=== PATIENT | male | born 1945 | race Caucasian/White ===

== ENCOUNTER 2017-04-03 07:47 | Inpatient (IN) | payer OTHER ==
[2017-04-02 13:38] VITALS: BMI 36.6
[2017-04-03] MEDS ORDERED: LIDOCAINE HCL 2% (20ML MULTI-DOSE VIAL) NR ONE (08:14)
[2017-04-03] MEDS ORDERED: SEVOFLURANE 250 ML BTL ONE (08:14)
[2017-04-03] MEDS ORDERED: DESFLURANE GAS 240 ML BOTTLE IH ONE (08:15)
[2017-04-03] MEDS ORDERED: CEFAZOLIN 2 GM in DEXTROSE 5%-WATER - 100 ML IVPB ONE (08:26)
[2017-04-03] MEDS ORDERED: FLU VACCINE QUAD 60 MCG/0.5 ML (MDV 17-18) IM ONE (08:26)
[2017-04-03] MEDS ORDERED: ceFAZolin SODIUM 1 GM VIAL ONE (08:36)
[2017-04-03] MEDS ORDERED: MIDAZOLAM HCL 2 MG/2 ML SINGLE DOSE VIAL ONE ×2 (09:15→13:05)
[2017-04-03] MEDS ORDERED: fentaNYL CITRATE 250 MCG/5 ML VIAL ONE ×2 (09:15→10:23)
[2017-04-03] MEDS ORDERED: PROPOFOL 20 ML ONE ×2 (09:15)
[2017-04-03] MEDS ORDERED: ROCURONIUM BROMIDE 50 MG/5 ML VIAL ONE ×4 (09:15→10:11)
--- NOTE | 2017-04-03 09:21 | HP ---
Admitting History and Physical - Admission Chief Complaint: pt with 5.6cm AAA. Here for EVAR today Limitations to Obtaining History: No Limitations - Past Medical History [employer]: Yes: CVA Cardiovascular: Yes: HTN, Hyperlipdemia Gastrointestinal: Yes: Constipation Renal/: Yes: BPH - Smoking History Smoking history: Former smoker Have you smoked in the past 12 months: No Aproximately how many cigarettes per day: 0 If you are a former smoker, when did you quit?: 25YRS AGO - Alcohol/Substance Use Hx Alcohol Use: Yes (OCCAS) History of Substance Use: reports: None - Social History ADL: Independent History of Recent Travel: No Home Medications - Allergies Allergies/Adverse Reactions: Allergies Allergy/AdvReac Type Severity Reaction Status Date / Time No Known Drug Allergies Allergy Mild Verified 04/03/17 08:30 - Home Medications Home Medications: Ambulatory Orders Amlodipine Besylate [Norvasc -] 10 mg PO DAILY #30 tablet 01/13/14 Aspirin [ASA -] 81 mg PO DAILY #30 tab.chew 01/13/14 Atorvastatin Ca [Lipitor] 20 mg PO HS #30 tablet 01/13/14 Cholecalciferol (Vitamin D3) [Vitamin D3] 5,000 unit PO DAILY 04/02/17 Hydralazine HCl [Apresoline -] 25 mg PO TID 04/02/17 Ibuprofen/Diphenhydramine HCl [Advil Pm Liqui-Gels] 2 each PO BID 04/02/17 Lisinopril/Hydrochlorothiazide [Lisinopril-Hctz 20-12.5 mg Tab] 1 each PO DAILY 04/02/17 Metoprolol Succinate [Toprol Xl -] 25 mg PO BID 04/02/17 Family Disease History - Family Disease History Family Disease History: Heart Disease: Father, CA: Mother Review of Systems - Review of Systems Constitutional: reports: No Symptoms Eyes: reports: No Symptoms HENT: reports: No Symptoms Neck: reports: No Symptoms Cardiovascular: reports: No Symptoms Respiratory: reports: No Symptoms Gastrointestinal: reports: No Symptoms Genitourinary: reports: No Symptoms Breasts: reports: No Symptoms Reported Musculoskeletal: reports: No Symptoms Integumentary: reports: No Symptoms Neurological: reports: No Symptoms Endocrine: reports: No Symptoms Hematology/Lymphatic: reports: No Symptoms Psychiatric: reports: No Symptoms Physical Examination Vital Signs: Vital Signs Temperature 97.4 F L 04/03/17 08:21 Pulse Rate 80 04/03/17 08:21 Respiratory Rate 20 04/03/17 08:21 Blood Pressure 154/92 04/03/17 08:21 O2 Sat by Pulse Oximetry (%) 97 04/03/17 08:20 Constitutional: Yes: Well Nourished Eyes: Yes: WNL HENT: Yes: WNL Neck: Yes: WNL Cardiovascular: Yes: WNL Respiratory: Yes: WNL Gastrointestinal: Yes: WNL ...Rectal Exam: Yes: WNL Renal/: Yes: WNL Breast(s): Yes: WNL Edema: No Peripheral Pulses WNL: Yes Integumentary: Yes: WNL Wound/Incision: Yes: Clean/Dry Neurological: Yes: WNL ...Motor Strength: WNL Psychiatric: Yes: WNL Assessment/Plan 5.6 cm AAA 1. For evar today.
[2017-04-03] MEDS ORDERED: ceFAZolin SODIUM 1 GM VIAL IVPB ONE (09:48)
[2017-04-03] MEDS ORDERED: DEXAMETHASONE SOD PHOSPHATE 4 MG/1 ML VIAL ONE (10:23)
[2017-04-03] MEDS ORDERED: HEPARIN NA (PORCINE) 5,000 UNITS/ML 1ML VIAL ONE (10:26)
[2017-04-03] MEDS ORDERED: GLYCOPYRROLATE 0.2 MG/1 ML VIAL ONE (12:13)
[2017-04-03] MEDS ORDERED: NEOSTIGMINE METHYLSULFATE 0.5 MG/ML - 10 ML MDV ONE (12:13)
[2017-04-03] MEDS ORDERED: POVIDONE-IODINE OINTMENT 10% - 28.4 GM TUBE ONE (12:15)
--- NOTE | 2017-04-03 12:55 | OP ---
Operative Note - Note: Operative Date: 04/03/17 Pre-Operative Diagnosis: AAA Operation: Endovascular repair of AAA Findings: 5.6cm AAA Post-Operative Diagnosis: Same as Pre-op Surgeon: Reilly Hanna Anesthesia: General Estimated Blood Loss (mls): 400 Operative Report Dictated: Yes
[2017-04-03] MEDS: MIDAZOLAM HCL 10 MG/10 ML VIAL IVPUSH ONE (13:00)
[2017-04-03] MEDS ORDERED: HYDROmorphone HCL CARPU-JECT 2 MG/1 ML DISP.SYRIN IVPUSH PRN (13:14)
[2017-04-03] MEDS ORDERED: ONDANSETRON 4 MG/2 ML VIAL IVPUSH PRN (13:14)
--- NOTE | 2017-04-03 13:14 | SURG ---
Surgery Community Dietitian Note Community Dietitian: Pravin Nuno PA-C Date of Service: 04/03/17 Diagnosis: Infrarenal AAA Procedure: Endovascular repair of AAA I was present for the entirety of the operative procedure. For further detail, please refer to operative report. Visit type - Case Type Case Type: Scheduled Admission - New patient This patient is new to me today: Yes Date on this admission: 04/03/17
[2017-04-03 14:02] LABS: MCH 28.2 pg (25.7-33.7); MCHC 32.4 g/dl (32.0-35.9); MEAN PLT VOLUME 8.1 fl (7.5-11.1); PLATELET COUNT 196 K/MM3 (134-434); RDW 15.8 % (11.9-15.9); WHITE BLOOD COUNT 10.8 K/mm3 (4.0-10.0)
[2017-04-03] MEDS ORDERED: HYDROmorphone HCL CARPU-JECT 2 MG/1 ML DISP.SYRIN ONE (14:02)
[2017-04-03] MEDS: hydrALAZINE HCL 25 MG TABLET (FP) PO SCH ×2 (15:17→21:53)
--- NOTE | 2017-04-03 16:31 | CONSULT ---
Consultation: REQUESTING PROVIDER: Nicanor Hanna CONSULT REQUEST: We have been asked to medically evaluate this patient for Post op EVAR care. HISTORY OF PRESENT ILLNESS: This is a 71 yo M with PMH of HTN, HLD, CVA 2014 (mild residual RLE weakness), past smoker, BPH, who presents s/p EVAR under general anesthesia for 5.6 cm AAA w/o complication and 400 cc documented blood loss. abx given. Patient is NAD post of, not complaining of pain. afebrile and hemodynamically stable. HR low 100's. Has PRN Dilaudid available for pain. Tolerated light meal. Denies dizziness, cp, back pain, sob, n.v, abd pain, pain in groin, LE gain weakness or numbness. REVIEW OF SYSTEMS: CONSTITUTIONAL: Absent: fever, chills, diaphoresis, generalized weakness HEENT: Absent: rhinorrhea, nasal congestion, throat pain, throat swelling, difficulty swallowing CARDIOVASCULAR: Absent: chest pain, syncope, palpitations, irregular heart rate, lightheadedness , peripheral edema RESPIRATORY: Absent: cough, shortness of breath, orthopnea, wheezing, stridor, hemoptysis GASTROINTESTINAL: Absent: abdominal pain, abdominal distension, nausea, vomiting GENITOURINARY: Absent: dysuria, genital pain MUSCULOSKELETAL: Absent: back pain, neck pain SKIN: Absent: rash, itching, pallor HEMATOLOGIC/IMMUNOLOGIC: Absent: easy bleeding, easy bruising ENDOCRINE: Absent: heat intolerance, cold intolerance NEUROLOGIC: Absent: headache, focal weakness or paresthesias PSYCHIATRIC: Absent: anxiety, depression PHYSICAL EXAMINATION Vital Signs - 24 hr 04/03/17 04/03/17 04/03/17 08:20 08:21 12:54 Temperature 97.4 F L 97.6 F Pulse Rate 80 96 H Respiratory 20 16 Rate Blood Pressure 154/92 127/106 O2 Sat by Pulse 97 95 Oximetry (%) 04/03/17 04/03/17 04/03/17 13:10 13:25 13:40 Temperature Pulse Rate 86 83 89 Respiratory 16 16 16 Rate Blood Pressure 159/90 146/73 153/85 O2 Sat by Pulse 92 L 94 L 95 Oximetry (%) 04/03/17 04/03/17 04/03/17 13:55 14:10 14:25 Temperature 97.6 F Pulse Rate 95 H 94 H 95 H Respiratory 16 16 16 Rate Blood Pressure 157/88 169/98 141/85 O2 Sat by Pulse 94 L 94 L 95 Oximetry (%) GENERAL: Awake, alert, and fully oriented, in no acute distress. HEAD: Normal with no signs of trauma. EYES: Pupils equal, round and reactive to light, extraocular movements intact, sclera anicteric, conjunctiva clear. No lid lag. EARS, NOSE, THROAT: Moist mucous membranes. NECK: supple without JVD LUNGS: Breath sounds equal, clear to auscultation bilaterally HEART: Regular rate and rhythm, normal S1 and S2 ABDOMEN: obese, Soft, nontender, not distended, normoactive bowel sounds, no guarding, no rebound, no masses. Groin:b/l groin dressings clean, no blood seen, no hematoma, mild tenderness. MUSCULOSKELETAL: No CVA tenderness. UPPER EXTREMITIES: 2+ pulses, No peripheral edema. LOWER EXTREMITIES: 1+ pulses, warm, well-perfused. No calf tenderness. No peripheral edema. NEUROLOGICAL: Cranial nerves II-XII intact. Normal speech. LE and UE strenght 5 /5 L side, 4+/5 R side, sensation intact PSYCHIATRIC: Cooperative. Good eye contact. Appropriate mood and affect. SKIN: Warm, dry Laboratory Results - last 24 hr 04/03/17 04/03/17 07:56 13:40 WBC 10.8 H D RBC 4.45 Hgb 12.6 D Hct 38.7 MCV 87.0 MCH 28.2 MCHC 32.4 RDW 15.8 Plt Count 196 D MPV 8.1 Blood Type A POSITIVE Antibody Screen Negative Crossmatch See Detail Active Medications Generic Name Dose Route Start Last Admin Trade Name Mehulq PRN Reason Stop Dose Admin Amlodipine Besylate 10 mg 04/04/17 10:00 Norvasc - PO DAILY [facility] Aspirin 81 mg 04/04/17 10:00 Asa - PO DAILY [facility] Atorvastatin Calcium 20 mg 04/03/17 22:00 Lipitor - PO HS [facility] Cholecalciferol 5,000 unit 04/04/17 10:00 Vitamin D3 - PO DAILY [facility] Hydralazine HCl 25 mg 04/03/17 14:00 04/03/17 15:17 Apresoline - PO 25 mg TID [facility] Administration Hydrochlorothiazide 12.5 mg 04/04/17 10:00 Hctz - PO DAILY [facility] Hydromorphone HCl 0.5 mg 04/03/17 13:14 04/03/17 14:00 Dilaudid Injection - IVPUSH 0.5 mg [id number] PRN Administration PAIN Lisinopril 20 mg 04/04/17 10:00 Prinivil PO DAILY [facility] Metoprolol Succinate 25 mg 04/03/17 22:00 Toprol Xl - PO BID [facility] Mupirocin 1 applic 04/03/17 22:00 Bactroban 2% Ointment - NS 04/08/17 21:59 BID [facility] Non-Formulary Medication 2 each 04/03/17 22:00 Ibuprofen/Diphenhydramine Hcl [Advil Pm Liqui-Gels] PO BID [facility] Ondansetron HCl 4 mg 04/03/17 13:14 Zofran Injection IVPUSH Q6H PRN NAUSEA AND/OR VOMITING ASSESSMENT/PLAN: This is a 71 yo M with PMH of HTN, HLD, CVA 2014 (mild residual RLE weakness), past smoker, BPH, who presents s/p EVAR under general anesthesia for 5.6 cm AAA w/o complication and 400 cc documented blood loss Neuro -aaox3 Pulm -stable CV *AAA POD0 s/p Elective EVAR -400 cc blood loss, repeat CBC stable, hemodynamically stable -gentle IV hydration -tele monitoring -dilaudid, advil prn for pain -incentive spirometer *HTN -Continue lisinorpil 20d, hctz 12.5d, toprol xl 25 bid, norvasc 10, hydralazine 25 tid -continue asa 81 *HLD -lipipitor 20 hs *BPH FEN NS @ 75 f/u lytes na restricted diet Dispo: We will continue to follow the patient. Thank you for this consultative opportunity. Problem List - Problems (1) HTN (hypertension) Code(s): I10 - ESSENTIAL (PRIMARY) HYPERTENSION (2) HLD (hyperlipidemia) Code(s): E78.5 - HYPERLIPIDEMIA, UNSPECIFIED (3) AAA (abdominal aortic aneurysm) Code(s): I71.4 - ABDOMINAL AORTIC ANEURYSM, WITHOUT RUPTURE (4) Endoleak post (EVAR) endovascular aneurysm repair Code(s): T82.330A - LEAKAGE OF AORTIC (BIFURCATION) GRAFT (REPLACEMENT), INIT (5) BPH (benign prostatic hyperplasia) Code(s): N40.0 - BENIGN PROSTATIC HYPERPLASIA WITHOUT LOWER URINRY TRACT SYMP Visit type - Emergency Visit Emergency Visit: Yes ED Registration Date: 04/03/17 Care time: The patient presented to the Emergency Department on the above date and was hospitalized for further evaluation of their emergent condition. - New Patient This patient is new to me today: Yes Date on this admission: 04/03/17 - Critical Care Critical Care patient: Yes Total Critical Care Time (in minutes): 35 Critical Care Statement: The care of this patient involved high complexity decision making to prevent further life threatening deterioration of the patient 's condition and/or to evaluate & treat vital organ system(s) failure or risk of failure.
[2017-04-03] MEDS ORDERED: SODIUM CHLORIDE 1,000 ML IV SCH (19:00)
--- NOTE | 2017-04-03 21:44 | CONSULT ---
Consult Consult Specialty:: Pulm/CCM Reason for Consultation:: s/p AAA repair - History of Present Illness History of Present Illness: 71 yo M with PMH of HTN, HLD, CVA 2014 (mild residual RLE weakness), past smoker , BPH, who pod#1 s/p EVAR under general anesthesia for 5.6 cm AAA w/o complications. EBL 400 cc. In the PACU patient is afebrile and hemodynamically stable w/o c/o surgical site pain, CP or SOB. He was transferred to ICU for further management. In ICU rec'd A+O x3, HD stable and w/o c/o. Bilat groin dressings dry and intact. EBL in OR <100cc. 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 Cardio/Vascular: Yes: HTN, Hyperlipdemia Gastrointestinal: Yes: Constipation Renal/: Yes: BPH - Past Surgical History Past Surgical History: Yes: AAA Repair - Alcohol/Substance Use Hx Alcohol Use: Yes (OCCAS) History of Substance Use: reports: None - Smoking History Smoking history: Former smoker Have you smoked in the past 12 months: No Aproximately how many cigarettes per day: 0 If you are a former smoker, when did you quit?: 25YRS AGO - Social History ADL: Independent History of Recent Travel: No Home Medications - Allergies Allergies/Adverse Reactions: Allergies Allergy/AdvReac Type Severity Reaction Status Date / Time No Known Drug Allergies Allergy Mild Verified 04/03/17 08:30 - Home Medications Home Medications: Ambulatory Orders Amlodipine Besylate [Norvasc -] 10 mg PO DAILY #30 tablet 01/13/14 Aspirin [ASA -] 81 mg PO DAILY #30 tab.chew 01/13/14 Atorvastatin Ca [Lipitor] 20 mg PO HS #30 tablet 01/13/14 Cholecalciferol (Vitamin D3) [Vitamin D3] 5,000 unit PO DAILY 04/02/17 Hydralazine HCl [Apresoline -] 25 mg PO TID 04/02/17 Ibuprofen/Diphenhydramine HCl [Advil Pm Liqui-Gels] 2 each PO BID 04/02/17 Lisinopril/Hydrochlorothiazide [Lisinopril-Hctz 20-12.5 mg Tab] 1 each PO DAILY 04/02/17 Metoprolol Succinate [Toprol Xl -] 25 mg PO BID 04/02/17 Family Disease History - Family Disease History Family Disease History: Heart Disease: Father, CA: Mother Physical Exam Vital Signs: Vital Signs Temperature 97.8 F 04/03/17 15:00 Pulse Rate 101 H 04/03/17 16:00 Respiratory Rate 16 04/03/17 16:00 Blood Pressure 124/89 04/03/17 16:00 O2 Sat by Pulse Oximetry (%) 97 04/03/17 16:24 Constitutional: Yes: Well Nourished, No Distress, Obese Eyes: Yes: WNL HENT: Yes: Atraumatic, Normocephalic Neck: Yes: Supple, Trachea Midline Cardiovascular: Yes: Regular Rate and Rhythm, S1, S2 Respiratory: Yes: Regular, Diminished (bases) Gastrointestinal: Yes: Normal Bowel Sounds, Soft, Abdomen, Obese Renal/: Yes: WNL Musculoskeletal: Yes: WNL Extremities: Yes: WNL Edema: No Peripheral Pulses WNL: Yes Wound/Incision: Yes: Clean/Dry, Dressing Dry and Intact Neurological: Yes: Alert, Oriented Psychiatric: Yes: Alert, Oriented Labs: CBC, BMP 04/03/17 13:40 CBC,CMP WBC 10.8 K/mm3 (4.0-10.0) H D 04/03/17 13:40 RBC 4.45 M/mm3 (4.00-5.60) 04/03/17 13:40 Hgb 12.6 GM/dL (11.7-16.9) D 04/03/17 13:40 Hct 38.7 % (35.4-49) 04/03/17 13:40 MCV 87.0 fl (80-96) 04/03/17 13:40 MCH 28.2 pg (25.7-33.7) 04/03/17 13:40 MCHC 32.4 g/dl (32.0-35.9) 04/03/17 13:40 RDW 15.8 % (11.9-15.9) 04/03/17 13:40 Plt Count 196 K/MM3 (134-434) D 04/03/17 13:40 MPV 8.1 fl (7.5-11.1) 04/03/17 13:40 Current Medications Amlodipine Besylate (Norvasc -) 10 mg PO DAILY [facility] Aspirin (Asa -) 81 mg PO DAILY [facility] Atorvastatin Calcium (Lipitor -) 20 mg PO HS [facility] Last Admin: 04/03/17 21:52 Dose: 20 mg Cholecalciferol (Vitamin D3 -) 5,000 unit PO DAILY [facility] Hydralazine HCl (Apresoline -) 25 mg PO TID [facility] Last Admin: 04/03/17 21:53 Dose: 25 mg Hydrochlorothiazide (Hctz -) 12.5 mg PO DAILY [facility] Hydromorphone HCl (Dilaudid Injection -) 0.5 mg IVPUSH [id number] PRN PRN Reason: PAIN Last Admin: 04/03/17 14:00 Dose: 0.5 mg Sodium Chloride (Normal Saline -) 1,000 mls @ 75 mls/hr IV ASDIR [facility] Last Admin: 04/03/17 21:53 Dose: 75 mls/hr Lisinopril (Prinivil) 20 mg PO DAILY [facility] Metoprolol Succinate (Toprol Xl -) 25 mg PO BID [facility] Last Admin: 04/03/17 21:53 Dose: 25 mg Mupirocin (Bactroban 2% Ointment -) 1 applic NS BID [facility] Stop: 04/08/17 21:59 Last Admin: 04/03/17 21:54 Dose: 1 applic Non-Formulary Medication (Ibuprofen/Diphenhydramine Hcl [Advil Pm Liqui-Gels]) 2 each PO BID [facility] Ondansetron HCl (Zofran Injection) 4 mg IVPUSH Q6H PRN PRN Reason: NAUSEA AND/OR VOMITING Vital Signs Period Temp Pulse Resp BP Sys/Gavin Pulse Ox Last 24 Hr 97.4 F-97.8 F 80-101 14-20 124-169/73-106 92-98 Problem List - Problems (1) AAA (abdominal aortic aneurysm) Code(s): I71.4 - ABDOMINAL AORTIC ANEURYSM, WITHOUT RUPTURE (2) Endoleak post (EVAR) endovascular aneurysm repair Code(s): T82.330A - LEAKAGE OF AORTIC (BIFURCATION) GRAFT (REPLACEMENT), INIT (3) HLD (hyperlipidemia) Code(s): E78.5 - HYPERLIPIDEMIA, UNSPECIFIED (4) HTN (hypertension) Code(s): I10 - ESSENTIAL (PRIMARY) HYPERTENSION (5) Cerebrovascular accident Code(s): I63.9 - CEREBRAL INFARCTION, UNSPECIFIED Assessment/Plan 71 yo M with PMH of HTN, HLD, CVA 2014 (mild residual RLE weakness), past smoker , BPH, who pod#1 s/p EVAR under general anesthesia for 5.6 cm AAA w/o complications. EBL ~400 cc. In the PACU patient is afebrile and hemodynamically stable w/o c/o surgical site pain, CP or SOB. He was transferred to ICU for further management. Plan: -Post-op management as per surgical team -HD monitoring -Monitor bilat groin insertion sites for hematoma and bleeding -Cont antihypertensive for BP controll -Cont Statin -Cont ASA when cleared by surgical team -Advance diet as kassie -Bowel regimen -DVT and GI prophylaxis. KIKA Jacob CC time 35mins
[2017-04-03] MEDS: METOPROLOL SUCCINATE 25 MG TAB.SR.24H (FP) PO SCH (21:53)
[2017-04-03] MEDS: MUPIROCIN 2% TOPICAL OINTMENT 22 GM TUBE NS SCH (21:54)
[2017-04-03] MEDS ORDERED: METOPROLOL SUCCINATE 25 MG TAB.SR.24H (FP) PO SCH (22:00)
[2017-04-03] MEDS ORDERED: MUPIROCIN 2% TOPICAL OINTMENT FOR DECOLONIZATION NS SCH (22:00)
[2017-04-03] MEDS ORDERED: [UNRECOGNIZED DRUG - OTHER] PO SCH (22:00)
[2017-04-03] MEDS ORDERED: hydrALAZINE HCL 25 MG TABLET (FP) PO SCH (22:00)
[2017-04-03] MEDS ORDERED: DIPHENHYDRAMINE HCL PO SCH (22:00)
[2017-04-03] MEDS ORDERED: ATORVASTATIN CA 20 MG TABLET (FP) PO SCH (22:00)
[2017-04-03] MEDS ORDERED: IBUPROFEN PO SCH (22:00)
[2017-04-03] MEDS ORDERED: CHLORHEXIDINE GLUCONATE 4% CLEANSER FOR DECOLONIZATION TP SCH (22:00)
[2017-04-04] MEDS: hydrALAZINE HCL 25 MG TABLET (FP) PO SCH ×3 (05:39→22:12)
[2017-04-04 06:13] LABS: MCH 29.2 pg (25.7-33.7); MCHC 33.5 g/dl (32.0-35.9); MEAN PLT VOLUME 8.5 fl (7.5-11.1); PLATELET COUNT 210 K/MM3 (134-434); RDW 15.6 % (11.9-15.9); WHITE BLOOD COUNT 11.1 K/mm3 (4.0-10.0)
[2017-04-04 06:34] LABS: ANION GAP 8 (8-16); CALCIUM 8.2 mg/dL (8.5-10.1); CO2 28 mmol/L (21-32); CREATININE 0.8 mg/dL (0.7-1.3); GLUCOSE,RANDOM 101 mg/dL (74-106)
[2017-04-04] MEDS: METOPROLOL SUCCINATE 25 MG TAB.SR.24H (FP) PO SCH ×2 (09:26→22:12)
[2017-04-04] MEDS ORDERED: CHOLECALCIFEROL (VITAMIN D3) 1,000 UNIT TABLET (FP) PO SCH (10:00)
[2017-04-04] MEDS ORDERED: PATIENT'S OWN MEDICATION (NON-FORMULARY) (Lisinopril/Hydrochlorothiazide [Lisinopril-Hctz PO SCH (10:00)
[2017-04-04] MEDS ORDERED: amLODIPine BESYLATE 10 MG TABLET (FP) PO SCH ×2 (10:00)
[2017-04-04] MEDS ORDERED: ASPIRIN 81 MG CHEWABLE TABLETS PO SCH (10:00)
[2017-04-04] MEDS ORDERED: HYDROCHLOROTHIAZIDE 12.5 MG CAPSULE (FP) PO SCH (10:00)
[2017-04-04] MEDS ORDERED: LISINOPRIL 20 MG TABLET (FP) PO SCH (10:00)
--- NOTE | 2017-04-04 10:22 | PN ---
Progress Note (short form) - Note Progress Note: POD#1 Pt without complaints of CP/SOB. No abd pain, some discomfort to his groins. He is voiding without difficulty. Vital Signs Period Temp Pulse Resp BP Sys/Gavin Pulse Ox Last 24 Hr 97.6 F-98.7 F 83-106 14-20 124-169/73-106 92-98 uop-750ml Gen: A&0x3, NAD CV: RRR Lungs: cta b/l ABD: obese, soft, non-distended. b/l groins inc c/d/i. LE: no calf tenderness or swelling note b/l, feet warm with +1 dp pulses b/l. CBC, BMP 12/07/17 05:00 12/07/17 05:00 A/P: 71 yo male s/p EVAR, POD#1 Doing well surgically, cont diet OOB to chair IV fluids discontinued Medical consult Dr. Kurtz for routine f/u care DVT ppx with Heparin SQ stable for transfer to the floor D.w Dr. Hanna
[2017-04-04] MEDS: MUPIROCIN 2% TOPICAL OINTMENT 22 GM TUBE NS SCH (11:00)
--- NOTE | 2017-04-04 11:35 | CONSULT ---
Consult Consult Specialty:: Internal Medicine Referred by:: Dr Reilly Hanna Reason for Consultation:: medical management - History of Present Illness Chief Complaint: I feel fine History of Present Illness: Mr Garces is a pleasant 71 year old male who is s/p AAA repair. He says he is feeling well and is without complaint. He denies fevers, chills, lightheadedness , dizziness, chest pain, shortness of breath, abdominal pain, nausea, vomiting, diarrhea, constipation, pain at entry site, difficulty or pain on urination, or swelling. - History Source History Provided By: Patient Limitations to Obtaining History: No Limitations - Past Medical History [employer]: Yes: CVA Cardio/Vascular: Yes: HTN, Hyperlipdemia Gastrointestinal: Yes: Constipation Renal/: Yes: BPH - Past Surgical History Past Surgical History: Yes: AAA Repair, Tonsillectomy - Alcohol/Substance Use Hx Alcohol Use: Yes (OCCAS) History of Substance Use: reports: None - Smoking History Smoking history: Former smoker Have you smoked in the past 12 months: No Aproximately how many cigarettes per day: 0 If you are a former smoker, when did you quit?: 25YRS AGO - Social History ADL: Independent History of Recent Travel: No Home Medications - Allergies Allergies/Adverse Reactions: Allergies Allergy/AdvReac Type Severity Reaction Status Date / Time No Known Drug Allergies Allergy Mild Verified 04/03/17 08:30 - Home Medications Home Medications: Ambulatory Orders Amlodipine Besylate [Norvasc -] 10 mg PO DAILY #30 tablet 01/13/14 Aspirin [ASA -] 81 mg PO DAILY #30 tab.chew 01/13/14 Atorvastatin Ca [Lipitor] 20 mg PO HS #30 tablet 01/13/14 Cholecalciferol (Vitamin D3) [Vitamin D3] 5,000 unit PO DAILY 04/02/17 Hydralazine HCl [Apresoline -] 25 mg PO TID 04/02/17 Ibuprofen/Diphenhydramine HCl [Advil Pm Liqui-Gels] 2 each PO BID 04/02/17 Lisinopril/Hydrochlorothiazide [Lisinopril-Hctz 20-12.5 mg Tab] 1 each PO DAILY 04/02/17 Metoprolol Succinate [Toprol Xl -] 25 mg PO BID 04/02/17 Family Disease History - Family Disease History Family Disease History: Heart Disease: Father, CA: Mother Review of Systems Findings/Remarks: Full review of systems obtained, as per HPI and otherwise negative. Physical Exam Vital Signs: Vital Signs Temperature 37.9 C H 04/04/17 11:00 Pulse Rate 94 H 04/04/17 10:22 Respiratory Rate 20 04/04/17 10:00 Blood Pressure 130/70 04/04/17 10:00 O2 Sat by Pulse Oximetry (%) 96 04/04/17 10:22 Constitutional: Yes: No Distress, Calm, Obese Eyes: Yes: Conjunctiva Clear, EOM Intact, PERRL HENT: Yes: Atraumatic, Normocephalic Cardiovascular: Yes: Regular Rate and Rhythm. No: Gallop, Murmur, Rub Respiratory: Yes: Regular, CTA Bilaterally. No: Rales, Rhonchi, Wheezes Gastrointestinal: Yes: Normal Bowel Sounds, Soft. No: Distention, Tenderness Extremities: Yes: WNL Edema: No Labs: CBC, BMP 04/04/17 05:00 04/04/17 05:00 Problem List - Problems (1) Endoleak post (EVAR) endovascular aneurysm repair Assessment/Plan: -vascular surgery following Code(s): T82.330A - LEAKAGE OF AORTIC (BIFURCATION) GRAFT (REPLACEMENT), INIT Qualifiers: Encounter type: initial encounter Qualified Code(s): T82.330A - Leakage of aortic (bifurcation) graft (replacement), initial encounter (2) Fever Assessment/Plan: -patient with one recorded fever -does not appear toxic -monitor, most likely post op fever secondary to inflammation Code(s): R50.9 - FEVER, UNSPECIFIED (3) Leukocytosis Assessment/Plan: -no need for antibiotics outside of post op antibiotics currently -however if continues to have fevers today will need chest x-ray and cultures -also if leukocytosis increases tomorrow will need further investigation as well Code(s): D72.829 - ELEVATED WHITE BLOOD CELL COUNT, UNSPECIFIED (4) HLD (hyperlipidemia) Assessment/Plan: -continue statin Code(s): E78.5 - HYPERLIPIDEMIA, UNSPECIFIED (5) HTN (hypertension) Assessment/Plan: -continue toprol xl, lisinopril, hydralazine, norvasc, and HCTZ -monitor Code(s): I10 - ESSENTIAL (PRIMARY) HYPERTENSION (6) TIA (transient ischemic attack) Assessment/Plan: -continue aspirin Code(s): G45.9 - TRANSIENT CEREBRAL ISCHEMIC ATTACK, UNSPECIFIED
--- NOTE | 2017-04-04 11:59 | OP ---
DATE OF OPERATION: 04/03/2017 PREOPERATIVE DIAGNOSIS: A 5.6-cm abdominal aortic aneurysm. POSTOPERATIVE DIAGNOSIS: A 5.6-cm abdominal aortic aneurysm. PROCEDURE: Endovascular repair of abdominal aortic aneurysm. SURGEON: Reilly Pompa DO BALL WINDER: MER[facility] Cantor ANESTHESIA: General. BLOOD LOSS: 400 mL INDICATION FOR PROCEDURE: The patient is a 71-year-old male who has a 5.6-cm abdominal aortic aneurysm. It has grown from 4.9 cm over the last year, and it was decided that he would need AAA repair. Patient had a preoperative stress test and an echo and received medical and cardiology clearance. Thereafter, we decided to proceed. Patient came in through Ambulatory Surgery. Patient was consented for the procedure, understanding all risks, benefits, and alternatives, and was then taken to the operating room. DESCRIPTION OF PROCEDURE: Once in the operating room, he was laid down on the operating table in supine manner. Anesthesia administered general anesthesia to the patient. Thereafter, a Haynes catheter was placed. Thereafter, bilateral groins were shaved, and his chest was shaved as well. We then went ahead and prepped the patient's bilateral groins and chest up to the xiphoid process, and the abdomen was prepped as well. We then prepped and draped in a sterile surgical manner. We then took an ultrasound probe and sterilely visualized our right and left common femoral arteries, and with a skin marker, those were marked on the skin in both the groins. A diagonal incision was drawn around them with the skin marker. We then went ahead and opened each groin using a number-15 blade. Bovie electrocautery was used to control hemostasis, and we were able to get down through all the subcutaneous tissue and get down to the femoral sheath. Femoral sheath was then opened and the common femoral artery was dissected anteriorly and posteriorly and Vesseloops were placed proximally and distally. This was done in both the right and left groins. We then went ahead and took a micropuncture needle and punctured the right common femoral artery and a micropuncture wire was inserted and an additional 8-Canadian was inserted. We then did the same for the left common femoral artery and placed an 8-Canadian sheath in the same manner. We then went ahead and placed a 0.035 floppy guidewire up the right common femoral artery, and under fluoroscopy, we were able to see that the external iliac artery was very tortuous. We were able to get the wire up into the aorta, followed by a pigtail. We then went ahead and exchanged for a Lunderquist wire. We then went ahead and placed a 0.035 floppy guidewire in the left common femoral artery and placed it up into the aorta, followed by our sizing pigtail catheter. We then went ahead and placed our pigtail at L1, and under power injection, we were able to perform an aortogram. The aortogram showed our bilateral renals which were then marked and showed our bifurcation. At that point, we went ahead, and we decided to put the main body up the right side. We removed our 8-Canadian sheath, and the main body was placed right below the bilateral renal arteries. We placed a 32 x 14 x 103 bifurcated stent graft and deployed it with the contralateral gate open. After it was deployed, we went ahead and went to the left side and placed a 0.035 floppy guidewire into the aorta, followed by a catheter, and we selectively cannulated. We were able to selectively cannulate the contralateral gate and placed the wire up, followed by our pigtail catheter to make sure that we were in the aorta. We then went ahead and shot an angiogram retrograde on the left side to ashli off our hypogastric artery, and we then went ahead and placed a 16 x 13, 82 limb to bring it down to the left internal iliac artery. Once that was done, we went over to the right side again. We took out our device, and then, we placed a 20-Canadian sheath. We then did a retrograde angiogram to ashli off our hypogastric artery on that side, and we then went ahead and placed a 16 x 13, 82 limb to seal off our aortic stent graft. Once that was performed, we went ahead and used a Reliant balloon and ballooned the entire stent graft into place bilaterally. We started at the top of the graft and then came down until all the areas overlapped. We did that on the right and left side. We then went ahead and placed our pigtail back up and shot an image via power injection and visualized our stent graft. Stent graft was patent. There was no extravasation of contrast. There was no leak, and there was good brisk flow. At this point, we removed the pigtail. We then went ahead and got proximal and distal control on the common femoral artery bilaterally and removed our sheaths. We then used 6-0 Prolene double-arm and closed the artery primarily in a running fashion on the right side and then opened the distal artery first, then the proximal artery, and there was no bleeding. We then irrigated the wound copiously and placed Surgicel there. We then on the left side closed the artery using 6-0 Prolene double-arm in a running fashion and opened the distal artery first, then the proximal artery. There was no bleeding. The wound was well irrigated, and Surgicel was placed. We then closed each groin using 2-0 Vicryl. The subcutaneous tissue was closed with 2-0 Vicryl in an interrupted manner, and the skin was closed with skin pankaj bilaterally. Area was wet and dried; 4 x 4, Tegaderms were placed bilaterally. Patient tolerated the procedure with no complication. The patient transferred to PACU in stable condition. REILLY POMPA DO NP/[id number]
--- NOTE | 2017-04-04 13:19 | PN ---
Teaching Attending Note Name of Resident: Geri Hook ATTENDING PHYSICIAN STATEMENT I saw and evaluated the patient. I reviewed the resident's note and discussed the case with the resident. I agree with the resident's findings and plan as documented. SUBJECTIVE: Pt seen and examined in the ICU. s/p EVAR without reported complications. No pain. No shortness of breath. OBJECTIVE: Last Vital Signs Temp Pulse Resp BP Pulse Ox 100.2 F H 94 H 20 130/70 96 04/04/17 11:00 04/04/17 10:22 04/04/17 10:00 04/04/17 10:00 04/04/17 10:22 Intake & Output 04/01/17 04/02/17 04/03/17 04/04/17 23:59 23:59 23:59 23:59 Intake Total 3150 800 Output Total 1000 650 Balance 2150 150 Weight 270 lb 279 lb 6 oz Gen: NAD at rest Heart: RRR Lung: decreased breath sounds at the bases Abd: soft, nontender Ext: no edema, dressings clean CBC, BMP 04/04/17 05:00 04/04/17 05:00 Active Medications Amlodipine Besylate (Norvasc -) 10 mg PO DAILY [facility] Last Admin: 04/04/17 09:27 Dose: 10 mg Aspirin (Asa -) 81 mg PO DAILY [facility] Last Admin: 04/04/17 09:27 Dose: 81 mg Atorvastatin Calcium (Lipitor -) 20 mg PO HS [facility] Last Admin: 04/03/17 21:52 Dose: 20 mg Cholecalciferol (Vitamin D3 -) 5,000 unit PO DAILY [facility] Last Admin: 04/04/17 09:27 Dose: 5,000 unit Heparin Sodium (Porcine) (Heparin -) 5,000 unit SQ TID [facility] Hydralazine HCl (Apresoline -) 25 mg PO TID [facility] Last Admin: 04/04/17 05:39 Dose: 25 mg Hydrochlorothiazide (Hctz -) 12.5 mg PO DAILY [facility] Last Admin: 04/04/17 09:24 Dose: 12.5 mg Lisinopril (Prinivil) 20 mg PO DAILY [facility] Last Admin: 04/04/17 09:26 Dose: 20 mg Metoprolol Succinate (Toprol Xl -) 25 mg PO BID [facility] Last Admin: 04/04/17 09:26 Dose: 25 mg Mupirocin (Bactroban 2% Ointment -) 1 applic NS BID [facility]ERNANDA Stop: 04/08/17 21:59 Last Admin: 04/03/17 21:54 Dose: 1 applic Ondansetron HCl (Zofran Injection) 4 mg IVPUSH Q6H PRN PRN Reason: NAUSEA AND/OR VOMITING ASSESSMENT AND PLAN: s/p EVAR POD #1 HTN Hyperlipidemia h/o CVA - monitor H/H - continue BP meds - pain control - d/c arterial line - OOB to chiar - DVT prophylaxis - can monitor on floor
[2017-04-04] MEDS ORDERED: HEPARIN NA (PORCINE) 5,000 UNITS/ML 1ML VIAL SQ SCH (14:00)
--- NOTE | 2017-04-04 14:08 | PN ---
Progress Note (short form) - Note Progress Note: Anesthesia POD#1 S/P Endovascular AAA repair under GA VSS,no pain issues,no N/V. Arterial Line can be removed. Meera Zamorano MD.
--- NOTE | 2017-04-04 14:39 | PN ---
Physical Exam: SUBJECTIVE: Patient seen and examined at bedside. 24 hr events -Pt received in ICU s/p AAA repair (Today is PO Day1) -no complaints overnight, afebrile Today -Denies fever, chills, abdominal pain -Haynes has been d/c -a-line has been d/c -PT to see pt -Stable for transfer to med-surg. Order is in OBJECTIVE: Vital Signs Period Temp Pulse Resp BP Sys/Gavin Pulse Ox Last 24 Hr 97.8 F-100.5 F 86-107 14-22 124-152/70-91 96-98 GENERAL: Very pleasant. The patient is awake, alert, and fully oriented, in no acute distress. HEAD: Normal with no signs of trauma. EYES: PERRL, extraocular movements intact, sclera anicteric, conjunctiva clear. NECK: Trachea midline, full range of motion, supple. LUNGS: Breath sounds equal, clear to auscultation bilaterally, no wheezes, no crackles, no accessory muscle use. HEART: Regular rate and rhythm, S1, S2 without murmur, rub or gallop. ABDOMEN: Soft, nontender, nondistended, normoactive bowel sounds. R groin incision- without drainage. Healing well. EXTREMITIES: 2+ dorsalis pedis pulses, warm, well-perfused, no edema. NEUROLOGICAL: Cranial nerves II through XII grossly intact. Laboratory Results - last 24 hr 04/04/17 04/04/17 05:00 05:00 WBC 11.1 H RBC 4.04 Hgb 11.8 Hct 35.2 L MCV 87.0 MCH 29.2 MCHC 33.5 RDW 15.6 Plt Count 210 MPV 8.5 Sodium 142 Potassium 4.0 Chloride 106 Carbon Dioxide 28 Anion Gap 8 BUN 17 Creatinine 0.8 Random Glucose 101 Calcium 8.2 L Active Medications Generic Name Dose Route Start Last Admin Trade Name Freq PRN Reason Stop Dose Admin Amlodipine Besylate 10 mg 04/04/17 10:00 04/04/17 09:27 Norvasc - PO 10 mg DAILY [facility]ERNANDA Administration Aspirin 81 mg 04/04/17 10:00 04/04/17 09:27 Asa - PO 81 mg DAILY [facility]ERNANDA Administration Atorvastatin Calcium 20 mg 04/03/17 22:00 04/03/17 21:52 Lipitor - PO 20 mg HS FERNANDA Administration Cholecalciferol 5,000 unit 04/04/17 10:00 04/04/17 09:27 Vitamin D3 - PO 5,000 unit DAILY FERNANDA Administration Heparin Sodium (Porcine) 5,000 unit 04/04/17 14:00 Heparin - SQ TID FERNANDA Hydralazine HCl 25 mg 04/03/17 14:00 04/04/17 05:39 Apresoline - PO 25 mg TID FERNANDA Administration Hydrochlorothiazide 12.5 mg 04/04/17 10:00 04/04/17 09:24 Hctz - PO 12.5 mg DAILY [facility]ER[facility]NDA Administration Ibuprofen 600 mg 04/04/17 14:03 Motrin - PO 04/04/17 14:04 ONCE ONE Lisinopril 20 mg 04/04/17 10:00 04/04/17 09:26 Prinivil PO 20 mg DAILY [facility] Administration Metoprolol Succinate 25 mg 04/03/17 22:00 04/04/17 09:26 Toprol Xl - PO 25 mg BID FERNANDA Administration Mupirocin 1 applic 04/03/17 22:00 04/03/17 21:54 Bactroban 2% Ointment - NS 04/08/17 21:59 1 applic BID FERNANDA Administration Ondansetron HCl 4 mg 04/03/17 13:14 Zofran Injection IVPUSH Q6H PRN NAUSEA AND/OR VOMITING ASSESSMENT/PLAN: 71 yo M with PMH of HTN, HLD, CVA 2014 (mild residual RLE weakness), past smoker , BPH, who is s/p EVAR under general anesthesia for 5.6 cm AAA w/o complications. He was transferred to ICU for further management. VASCULAR #s/p EVAR under general anesthesia (PO Day1) -Pt without complications, hemodynamically stable -a-line has been d/c -Haynes has been d/c -Pain control: ibuprofen 600 mg PRN -Zofran 4mg IVP q6h PRN for nausea -Will continue to follow vascular recs CARDIO #HTN- controlled -Continue amlodipine 10mg PO qd -HCTZ 12.5 mg PO qd -Lisinopril 20mg PO qd -Hydralazine 25mg PO TID FERNANDA #HLD -Continue Lipitor 20mg PO qHS #Past hx CVA -Continue aspirin 81mg PO qd #F/E/N -Will monitor electrolytes -Regular diet, Na controlled #Prophylaxis DVT: Heparin 5000 SQ TID #Dispo Stable for transfer to med-surg. Order is in Visit type - Emergency Visit Emergency Visit: No - New Patient This patient is new to me today: Yes Date on this admission: 04/04/17 - Critical Care Critical Care patient: Yes Total Critical Care Time (in minutes): 31 Critical Care Statement: The care of this patient involved high complexity decision making to prevent further life threatening deterioration of the patient 's condition and/or to evaluate & treat vital organ system(s) failure or risk of failure.
[2017-04-04] MEDS: IBUPROFEN 600 MG TABLET (FP) PO ONE ×2 (15:37→15:56)
[2017-04-04] MEDS ORDERED: ACETAMINOPHEN 325 MG TABLET (FP) PO PRN (16:19)
[2017-04-04] MEDS ORDERED: ONDANSETRON 4 MG/2 ML VIAL IVPUSH PRN (18:51)
[2017-04-04] MEDS: MIDAZOLAM HCL 10 MG/10 ML VIAL IVPUSH ONE (18:52)
[2017-04-04] MEDS ORDERED: MUPIROCIN 2% TOPICAL OINTMENT 22 GM TUBE NS SCH (22:00)
[2017-04-04] MEDS: HEPARIN NA (PORCINE) 5,000 UNITS/ML 1ML VIAL SQ SCH (22:12)
[2017-04-04] MEDS: ATORVASTATIN CA 20 MG TABLET (FP) PO SCH (22:12)
[2017-04-05] MEDS: hydrALAZINE HCL 25 MG TABLET (FP) PO SCH ×3 (06:12→23:09)
[2017-04-05] MEDS: HEPARIN NA (PORCINE) 5,000 UNITS/ML 1ML VIAL SQ SCH ×3 (06:12→23:08)
[2017-04-05 07:32] LABS: BASOPHIL 0.1 % (0-2.0); EOSINOPHIL 0.1 % (0-4.5); MCH 28.7 pg (25.7-33.7); MCHC 33.1 g/dl (32.0-35.9); MEAN CELL VOLUME 86.7 fl (80-96); MEAN PLT VOLUME 8.5 fl (7.5-11.1); NEUTROPHILS 72.4 % (42.8-82.8); PLATELET COUNT 179 K/MM3 (134-434); RDW 16.2 % (11.9-15.9); WHITE BLOOD COUNT 12.1 K/mm3 (4.0-10.0)
[2017-04-05 08:02] LABS: ANION GAP 7 (8-16); CALCIUM 7.8 mg/dL (8.5-10.1); CO2 26 mmol/L (21-32); GLUCOSE,RANDOM 95 mg/dL (74-106); MAGNESIUM 2.2 mg/dL (1.8-2.4)
[2017-04-05 08:04] LABS: CREATININE 0.8 mg/dL (0.7-1.3)
[2017-04-05] MEDS: ASPIRIN 81 MG CHEWABLE TABLETS PO SCH (09:20)
[2017-04-05] MEDS: CHOLECALCIFEROL (VITAMIN D3) 1,000 UNIT TABLET (FP) PO SCH (09:20)
[2017-04-05] MEDS: LISINOPRIL 20 MG TABLET (FP) PO SCH (09:21)
[2017-04-05] MEDS: amLODIPine BESYLATE 10 MG TABLET (FP) PO SCH (09:21)
[2017-04-05] MEDS: METOPROLOL SUCCINATE 25 MG TAB.SR.24H (FP) PO SCH ×2 (09:21→23:09)
[2017-04-05] MEDS: HYDROCHLOROTHIAZIDE 12.5 MG CAPSULE (FP) PO SCH (09:21)
--- NOTE | 2017-04-05 10:41 | PN ---
Progress Note (short form) - Note Progress Note: Vascular Surgery Patient seen and examined at bedside Requesting physical therapy does not feel ready to go home Febrile in past 24 hours Tmax 102.8 Vital Signs Period Temp Pulse Resp BP Sys/Gavin Pulse Ox Last 24 Hr 98.5 F-102.8 F 55-112 20-24 93-154/65-87 94-96 PE: AAOx3 NAD RRR CTAB soft not nd groin incisions staple lines clean dry intact without drainage or discharge. Cypress in place LE: no calf tenderness or swelling note b/l, feet warm with +1 dp pulses b/l. A/P: 71M with multiple medical problems presents with AAA s/p EVAAR POD#2 Patient had fever yesterday and increasing leukocytosis likely secondary to post op SIRS vs atelectais HTN HLD AAA s/p EVAAR POD #2 Fever leukocytosis give morning meds for BP now. continue sodium controlled diet medical team to work up for leukocytosis and fever continue diet DVT PPx doing well surgically denies BM Can be discharged from surgical standpoint and when cleared by medical team Dressing change with bacitracin daily Discussed with Dr. Hanna
--- NOTE | 2017-04-05 11:00 | PN ---
Progress Note, Physician Chief Complaint: Mr Garces says he is feeling well. Denies feeling feverish, chest pain, coughing , shortness of breath, nausea/vomiting, pain at groin site - Current Medication List Current Medications: Active Medications Acetaminophen (Tylenol -) 650 mg PO Q6H PRN PRN Reason: FEVER OR PAIN Amlodipine Besylate (Norvasc -) 10 mg PO DAILY [facility] Last Admin: 04/05/17 09:21 Dose: 10 mg Aspirin (Asa -) 81 mg PO DAILY [facility] Last Admin: 04/05/17 09:20 Dose: 81 mg Atorvastatin Calcium (Lipitor -) 20 mg PO HS [facility] Last Admin: 04/04/17 22:12 Dose: 20 mg Bacitracin (Bacitracin -) 1 applic TP DAILY [facility] Cholecalciferol (Vitamin D3 -) 5,000 unit PO DAILY [facility] Last Admin: 04/05/17 09:20 Dose: 5,000 unit Heparin Sodium (Porcine) (Heparin -) 5,000 unit SQ TID [facility] Last Admin: 04/05/17 06:12 Dose: 5,000 unit Hydralazine HCl (Apresoline -) 25 mg PO TID [facility] Last Admin: 04/05/17 06:12 Dose: 25 mg Hydrochlorothiazide (Hctz -) 12.5 mg PO DAILY [facility] Last Admin: 04/05/17 09:21 Dose: 12.5 mg Lisinopril (Prinivil) 20 mg PO DAILY [facility] Last Admin: 04/05/17 09:21 Dose: 20 mg Metoprolol Succinate (Toprol Xl -) 25 mg PO BID [facility] Last Admin: 04/05/17 09:21 Dose: 25 mg - Objective Vital Signs: Vital Signs Temperature 36.9 C 04/05/17 06:00 Pulse Rate 55 L 04/05/17 06:00 Respiratory Rate 20 04/05/17 06:00 Blood Pressure 93/66 04/05/17 06:00 O2 Sat by Pulse Oximetry (%) 96 04/04/17 21:00 Constitutional: Yes: Well Nourished, No Distress, Calm Cardiovascular: Yes: Regular Rate and Rhythm. No: Gallop, Murmur, Rub Respiratory: Yes: Regular, CTA Bilaterally. No: Rales, Rhonchi, Wheezes Gastrointestinal: Yes: Normal Bowel Sounds, Soft. No: Distention, Tenderness Extremities: Yes: WNL Edema: No Wound/Incision: Yes: Reddened Labs: CBC, BMP 04/05/17 07:20 04/05/17 07:20 Problem List - Problems (1) Endoleak post (EVAR) endovascular aneurysm repair Code(s): T82.330A - LEAKAGE OF AORTIC (BIFURCATION) GRAFT (REPLACEMENT), INIT Qualifiers: Encounter type: initial encounter Qualified Code(s): T82.330A - Leakage of aortic (bifurcation) graft (replacement), initial encounter (2) Fever Code(s): R50.9 - FEVER, UNSPECIFIED (3) Leukocytosis Code(s): D72.829 - ELEVATED WHITE BLOOD CELL COUNT, UNSPECIFIED (4) HLD (hyperlipidemia) Code(s): E78.5 - HYPERLIPIDEMIA, UNSPECIFIED (5) HTN (hypertension) Code(s): I10 - ESSENTIAL (PRIMARY) HYPERTENSION (6) TIA (transient ischemic attack) Code(s): G45.9 - TRANSIENT CEREBRAL ISCHEMIC ATTACK, UNSPECIFIED (7) Sepsis Code(s): A41.9 - SEPSIS, UNSPECIFIED ORGANISM Assessment/Plan (1) Endoleak post (EVAR) endovascular aneurysm repair Assessment/Plan: -vascular surgery following and case discussed Code(s): T82.330A - LEAKAGE OF AORTIC (BIFURCATION) GRAFT (REPLACEMENT), INIT Qualifiers: Encounter type: initial encounter Qualified Code(s): T82.330A - Leakage of aortic (bifurcation) graft (replacement), initial encounter (2) Sepsis -patient with continued fevers and worse -will obtain urinalysis, urine cultures, chest x-ray, and blood cultures (3) HLD (hyperlipidemia) Assessment/Plan: -continue statin Code(s): E78.5 - HYPERLIPIDEMIA, UNSPECIFIED (4) HTN (hypertension) Assessment/Plan: -continue toprol xl, lisinopril, hydralazine, norvasc, and HCTZ -monitor Code(s): I10 - ESSENTIAL (PRIMARY) HYPERTENSION (5) TIA (transient ischemic attack) Assessment/Plan: -continue aspirin Code(s): G45.9 - TRANSIENT CEREBRAL ISCHEMIC ATTACK, UNSPECIFIED
--- NOTE | 2017-04-05 11:43 | PN ---
Progress Note (short form) - Note Progress Note: POD 2 Alert. Laying supine in bed. Hasn't been oob (fall risk). Patient had Tmax of 102.8F yesterday at 4pm. Fevers trending down over course of the day. Currently 98.5F. Resting comfortably without complaint. Pain managed well via PRN meds. Denies n/v, CP, SOB, cough or palpitations. Last Vital Signs Temp Pulse Resp BP Pulse Ox 98.5 F 55 L 20 93/66 96 04/05/17 06:00 04/05/17 06:00 04/05/17 06:00 04/05/17 06:00 04/04/17 21:00 Gen: nad Abd: morbidly obese Groin: Rt --> incision pankaj c/d/i. no palpable hematoma or drainage. Palpable femoral & DP pulse. Lt --> incision pankaj c/d/i. no palpable hematoma or drainage. Of note, slight erythema extending both medial/lateral from incision. Palpable femoral & DP pulse. Problem List - Problems (1) AAA (abdominal aortic aneurysm) without rupture Assessment/Plan: POD #2 s/p EVAR. Patient had fevers yesterday. f/u fever work-up (urine, CXR, blood cultures) PT Fall risk Ancef 2gm Q8H Tylenol for fever > 100.3F Above plan discussed with Dr. Hanna and agrees. Code(s): I71.4 - ABDOMINAL AORTIC ANEURYSM, WITHOUT RUPTURE
[2017-04-05] MEDS: BACITRACIN 15 GM TUBE TOPICAL OINTMENT TP SCH (12:27)
--- NOTE | 2017-04-05 12:50 | PN ---
Progress Note, Physician - Current Medication List Current Medications: Active Medications Acetaminophen (Tylenol -) 650 mg PO Q6H PRN PRN Reason: FEVER OR PAIN Amlodipine Besylate (Norvasc -) 10 mg PO DAILY [facility] Last Admin: 04/05/17 09:21 Dose: 10 mg Aspirin (Asa -) 81 mg PO DAILY [facility] Last Admin: 04/05/17 09:20 Dose: 81 mg Atorvastatin Calcium (Lipitor -) 20 mg PO HS [facility] Last Admin: 04/04/17 22:12 Dose: 20 mg Bacitracin (Bacitracin -) 1 applic TP DAILY [facility] Last Admin: 04/05/17 12:27 Dose: 1 applic Cholecalciferol (Vitamin D3 -) 5,000 unit PO DAILY [facility] Last Admin: 04/05/17 09:20 Dose: 5,000 unit Heparin Sodium (Porcine) (Heparin -) 5,000 unit SQ TID [facility] Last Admin: 04/05/17 06:12 Dose: 5,000 unit Hydralazine HCl (Apresoline -) 25 mg PO TID [facility] Last Admin: 04/05/17 06:12 Dose: 25 mg Hydrochlorothiazide (Hctz -) 12.5 mg PO DAILY [facility] Last Admin: 04/05/17 09:21 Dose: 12.5 mg Cefazolin Sodium (Ancef -) 1 gm in 10 mls @ 100 mls/hr IVPUSH Q8H-IV [facility] Lisinopril (Prinivil) 20 mg PO DAILY [facility] Last Admin: 04/05/17 09:21 Dose: 20 mg Metoprolol Succinate (Toprol Xl -) 25 mg PO BID [facility] Last Admin: 04/05/17 09:21 Dose: 25 mg - Objective Vital Signs: Vital Signs Temperature 38.2 C H 04/05/17 10:00 Pulse Rate 58 L 04/05/17 10:00 Respiratory Rate 18 04/05/17 10:00 Blood Pressure 129/57 04/05/17 10:00 O2 Sat by Pulse Oximetry (%) 96 04/04/17 21:00 Labs: CBC, BMP 04/05/17 07:20 04/05/17 07:20 Problem List - Problems (1) Endoleak post (EVAR) endovascular aneurysm repair Code(s): T82.330A - LEAKAGE OF AORTIC (BIFURCATION) GRAFT (REPLACEMENT), INIT Qualifiers: Encounter type: initial encounter Qualified Code(s): T82.330A - Leakage of aortic (bifurcation) graft (replacement), initial encounter (2) Fever Code(s): R50.9 - FEVER, UNSPECIFIED (3) Leukocytosis Code(s): D72.829 - ELEVATED WHITE BLOOD CELL COUNT, UNSPECIFIED (4) HLD (hyperlipidemia) Code(s): E78.5 - HYPERLIPIDEMIA, UNSPECIFIED (5) HTN (hypertension) Code(s): I10 - ESSENTIAL (PRIMARY) HYPERTENSION (6) TIA (transient ischemic attack) Code(s): G45.9 - TRANSIENT CEREBRAL ISCHEMIC ATTACK, UNSPECIFIED
[2017-04-05 13:09] LABS: URINE APPEARANCE CLEAR; URINE BILIRUBIN NEGATIVE (NEGATIVE); URINE BLOOD NEGATIVE (NEGATIVE); URINE COLOR YELLOW; URINE GLUCOSE (UA) NEGATIVE (NEGATIVE); URINE KETONE NEGATIVE (NEGATIVE); URINE LEUK ESTERASE NEGATIVE (NEGATIVE); URINE NITRITE NEGATIVE (NEGATIVE); URINE PROTEIN NEGATIVE (NEGATIVE); URINE UROBILINOGEN 4.0 E.U/dl mg/dL (0.2-1.0)
[2017-04-05] MEDS: CEFAZOLIN 1 GM PUSH 1 GM/10 ML DISP.SYRIN IVPUSH SCH ×2 (13:50→23:14)
[2017-04-05 18:13] LABS: URINE LEUK ESTERASE Negative (NEGATIVE)
[2017-04-05] MEDS ORDERED: guaiFENesin 200 MG/10 ML 10 ML UNIT-DOSE CUPS PO ONE ×2 (18:14→23:15)
[2017-04-05] MEDS: ATORVASTATIN CA 20 MG TABLET (FP) PO SCH (23:09)
[2017-04-06] MEDS: CEFAZOLIN 1 GM PUSH 1 GM/10 ML DISP.SYRIN IVPUSH SCH ×2 (04:00→09:48)
[2017-04-06] MEDS: HEPARIN NA (PORCINE) 5,000 UNITS/ML 1ML VIAL SQ SCH ×3 (06:37→21:15)
[2017-04-06] MEDS: hydrALAZINE HCL 25 MG TABLET (FP) PO SCH ×3 (06:38→21:15)
[2017-04-06] MEDS ORDERED: PT OWN MED DRAWER 7, Y5N ONE (09:30)
[2017-04-06] MEDS: BACITRACIN 15 GM TUBE TOPICAL OINTMENT TP SCH (09:48)
[2017-04-06] MEDS: ASPIRIN 81 MG CHEWABLE TABLETS PO SCH (09:48)
[2017-04-06] MEDS: METOPROLOL SUCCINATE 25 MG TAB.SR.24H (FP) PO SCH ×2 (09:49→21:15)
[2017-04-06] MEDS: CHOLECALCIFEROL (VITAMIN D3) 1,000 UNIT TABLET (FP) PO SCH (09:49)
[2017-04-06] MEDS: HYDROCHLOROTHIAZIDE 12.5 MG CAPSULE (FP) PO SCH (09:49)
[2017-04-06] MEDS: LISINOPRIL 20 MG TABLET (FP) PO SCH (09:49)
[2017-04-06] MEDS: amLODIPine BESYLATE 10 MG TABLET (FP) PO SCH (09:49)
--- NOTE | 2017-04-06 14:15 | PN ---
Physical Exam: SUBJECTIVE: Patient seen and examined at bedside. Denies abdominal or surgical site pain. Complains of constipation. OBJECTIVE: Vital Signs Period Temp Pulse Resp BP Sys/Gavin Pulse Ox Last 24 Hr 98.3 F-101.3 F 66-112 18-20 105-153/51-88 96 GENERAL: The patient is awake, alert, and fully oriented, in no acute distress. LUNGS: Mild anterior expiratory wheezing; crackles RLL HEART: Regular rate and rhythm, S1, S2 without murmur, rub or gallop. ABDOMEN: Soft, obese, not tender; normoactive bowel sounds, no guarding, no rebound; bilateral groin surgical wounds not visualized today, dressings c/d/i; no surrounding erythema or swelling, not tender EXTREMITIES: 2+ pulses, warm, well-perfused, no edema. NEUROLOGICAL: Cranial nerves II through XII grossly intact. Normal speech, slow gait CBCD WBC 12.1 K/mm3 (4.0-10.0) H 04/05/17 07:20 RBC 4.21 M/mm3 (4.00-5.60) 04/05/17 07:20 Hgb 12.1 GM/dL (11.7-16.9) 04/05/17 07:20 Hct 36.5 % (35.4-49) 04/05/17 07:20 MCV 86.7 fl (80-96) 04/05/17 07:20 MCHC 33.1 g/dl (32.0-35.9) 04/05/17 07:20 RDW 16.2 % (11.9-15.9) H 04/05/17 07:20 Plt Count 179 K/MM3 (134-434) 04/05/17 07:20 MPV 8.5 fl (7.5-11.1) 04/05/17 07:20 CMP Sodium 137 mmol/L (136-145) 04/05/17 07:20 Potassium 3.7 mmol/L (3.5-5.1) 04/05/17 07:20 Chloride 104 mmol/L (98-107) 04/05/17 07:20 Carbon Dioxide 26 mmol/L (21-32) 04/05/17 07:20 Anion Gap 7 (8-16) L 04/05/17 07:20 BUN 17 mg/dL (7-18) 04/05/17 07:20 Creatinine 0.8 mg/dL (0.7-1.3) 04/05/17 07:20 Calcium 7.8 mg/dL (8.5-10.1) L 04/05/17 07:20 Active Medications Generic Name Dose Route Start Last Admin Trade Name Freq PRN Reason Stop Dose Admin Acetaminophen 650 mg 04/04/17 16:19 04/05/17 22:15 Tylenol - PO 650 mg Q6H PRN Administration FEVER OR PAIN Amlodipine Besylate 10 mg 04/05/17 10:00 04/06/17 09:49 Norvasc - PO 10 mg DAILY FERNANDA Administration Aspirin 81 mg 04/05/17 10:00 04/06/17 09:48 Asa - PO 81 mg DAILY FERNANDA Administration Atorvastatin Calcium 20 mg 04/04/17 22:00 04/05/17 23:09 Lipitor - PO 20 mg HS FERNANDA Administration Bacitracin 1 applic 04/05/17 11:00 04/06/17 09:48 Bacitracin - TP 1 applic DAILY FERNANDA Administration Cholecalciferol 5,000 unit 04/05/17 10:00 04/06/17 09:49 Vitamin D3 - PO 5,000 unit DAILY FERNANDA Administration Heparin Sodium (Porcine) 5,000 unit 04/04/17 22:00 04/06/17 13:43 Heparin - SQ 5,000 unit TID FERNANDA Administration Hydralazine HCl 25 mg 04/04/17 22:00 04/06/17 13:43 Apresoline - PO 25 mg TID FERNANDA Administration Hydrochlorothiazide 12.5 mg 04/05/17 10:00 04/06/17 09:49 Hctz - PO 12.5 mg DAILY FERNANDA Administration Ceftriaxone Sodium 2 gm/ 100 mls @ 200 mls/hr 04/06/17 14:15 Dextrose IVPB DAILY FERNANDA Metronidazole 500 mg in 100 mls @ 100 mls/hr 04/06/17 14:15 Flagyl 500mg Premixed Ivpb - IVPB Q8H-IV FERNANDA Lisinopril 20 mg 04/05/17 10:00 04/06/17 09:49 Prinivil PO 20 mg DAILY FERNANDA Administration Metoprolol Succinate 25 mg 04/04/17 22:00 04/06/17 09:49 Toprol Xl - PO 25 mg BID FERNANDA Administration ASSESSMENT/PLAN 71 year-old male with a PMH significant for HTN, HLD, 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 Admitted for AAA s/p endovascular repair 04/03/17. Endoleak post (EVAR) endovascular aneurysm repair --surgical sites c/d/i --Dr. Hanna following Fever & Leukocytosis --fevers persist over past 48 hours, may be post-operative but concern for infection --stop cefazolin, switch to ceftriaxone and metronidazole --blood cultures NGTD --urine culture negative Hyperlipidemia --continue Lipitor Hypertension --continue Lisinopril, Toprol XL, amlodipine, hydralazine, HCTZ h/o CVA --continue ASA, Lipitor Constipation --Miralax, colace FEN Fluids: PO intake adequate Electrolytes: replete as indicated Nutrition: low sodium DVT prophylaxis: subq heparin, oob, ambulation Physical therapy daily Dispo: continues to require inpatient care. Full code. Visit type - Emergency Visit Emergency Visit: Yes ED Registration Date: 04/03/17 Care time: The patient presented to the Emergency Department on the above date and was hospitalized for further evaluation of their emergent condition. - New Patient This patient is new to me today: Yes Date on this admission: 04/06/17 - Critical Care Critical Care patient: No
[2017-04-06] MEDS ORDERED: CEFTRIAXONE 2 GM in DEXTROSE 5%-WATER - 100 ML IVPB SCH (16:00)
[2017-04-06] MEDS: METRONIDAZOLE 500 MG PREMIXED 500 MG/100 ML MG IVPB SCH (17:16)
[2017-04-06] MEDS: POLYETHYLENE GLYCOL 3350 119 GM BTL PO SCH ×2 (17:59→21:14)
[2017-04-06] MEDS: ATORVASTATIN CA 20 MG TABLET (FP) PO SCH (21:15)
[2017-04-06] MEDS: DOCUSATE SODIUM 100 MG CAPSULE (FP) PO SCH (21:15)
[2017-04-06] MEDS: ALBUTEROL SO4 2.5/IPRATROPIUM 0.5 INH SOL 3 ML VIAL.NEB. NEB SCH (22:18)
[2017-04-07] MEDS: METRONIDAZOLE 500 MG PREMIXED 500 MG/100 ML MG IVPB SCH (01:12)
[2017-04-07] MEDS: hydrALAZINE HCL 25 MG TABLET (FP) PO SCH ×3 (05:28→21:43)
[2017-04-07] MEDS: HEPARIN NA (PORCINE) 5,000 UNITS/ML 1ML VIAL SQ SCH ×3 (05:28→21:43)
[2017-04-07] MEDS: ALBUTEROL SO4 2.5/IPRATROPIUM 0.5 INH SOL 3 ML VIAL.NEB. NEB SCH ×3 (06:43→22:16)
[2017-04-07 07:07] LABS: BASOPHIL 0.5 % (0-2.0); EOSINOPHIL 1.1 % (0-4.5); MCH 28.9 pg (25.7-33.7); MCHC 33.2 g/dl (32.0-35.9); MEAN PLT VOLUME 8.3 fl (7.5-11.1); NEUTROPHILS 67.7 % (42.8-82.8); PLATELET COUNT 207 K/MM3 (134-434); WHITE BLOOD COUNT 9.6 K/mm3 (4.0-10.0)
[2017-04-07 07:33] LABS: ALBUMIN 2.7 g/dl (3.4-5.0); ALK PHOS 42 U/L (45-117); ANION GAP 8 (8-16); BILIRUBIN,TOTAL 0.8 mg/dL (0.2-1.0); CALCIUM 8.4 mg/dL (8.5-10.1); CO2 26 mmol/L (21-32); CREATININE 0.9 mg/dL (0.7-1.3); GLUCOSE,RANDOM 117 mg/dL (74-106); MAGNESIUM 2.1 mg/dL (1.8-2.4); SGOT/AST 14 U/L (15-37); SGPT/ALT 22 U/L (12-78); TOT PROT 5.9 g/dl (6.4-8.2)
[2017-04-07] MEDS ORDERED: PT OWN MED DRAWER 7, Y5N ONE (08:38)
--- NOTE | 2017-04-07 09:29 | PN ---
Progress Note (short form) - Note Progress Note: asymptomatic. denies CP, SOB, fever, chills, N/V/C/D. had large BM this AM Current Medications Generic Name Dose Route Start Last Admin Trade Name Ericka PRN Reason Stop Dose Admin Acetaminophen 650 mg 04/04/17 16:19 04/05/17 22:15 Tylenol - PO 650 mg Q6H PRN Administration FEVER OR PAIN Albuterol/Ipratropium 1 amp 04/06/17 22:00 04/07/17 06:43 Duoneb - NEB 1 amp TIDR FERNANDA Administration Amlodipine Besylate 10 mg 04/05/17 10:00 04/06/17 09:49 Norvasc - PO 10 mg DAILY FERNANDA Administration Aspirin 81 mg 04/05/17 10:00 04/06/17 09:48 Asa - PO 81 mg DAILY FERNANDA Administration Atorvastatin Calcium 20 mg 04/04/17 22:00 04/06/17 21:15 Lipitor - PO 20 mg HS FERNANDA Administration Bacitracin 1 applic 04/05/17 11:00 04/06/17 09:48 Bacitracin - TP 1 applic DAILY FERNANDA Administration Cholecalciferol 5,000 unit 04/05/17 10:00 04/06/17 09:49 Vitamin D3 - PO 5,000 unit DAILY FERNANDA Administration Docusate Sodium 300 mg 04/06/17 22:00 04/06/17 21:15 Colace - PO 300 mg HS FERNANDA Administration Heparin Sodium (Porcine) 5,000 unit 04/04/17 22:00 04/07/17 05:28 Heparin - SQ 5,000 unit TID FERNANDA Administration Hydralazine HCl 25 mg 04/04/17 22:00 04/07/17 05:28 Apresoline - PO 25 mg TID FERNANDA Administration Hydrochlorothiazide 12.5 mg 04/05/17 10:00 04/06/17 09:49 Hctz - PO 12.5 mg DAILY FERNANDA Administration Ceftriaxone Sodium 2 gm/ 100 mls @ 200 mls/hr 04/06/17 16:00 04/06/17 15:51 Dextrose IVPB 200 mls/hr DAILY FERNANDA Administration Metronidazole 500 mg in 100 mls @ 100 mls/hr 04/06/17 18:00 04/07/17 01:12 Flagyl 500mg Premixed Ivpb - IVPB 100 mls/hr Q8H-IV FERNANDA Administration Lisinopril 20 mg 04/05/17 10:00 04/06/17 09:49 Prinivil PO 20 mg DAILY FERNANDA Administration Metoprolol Succinate 25 mg 04/04/17 22:00 04/06/17 21:15 Toprol Xl - PO 25 mg BID FERNANDA Administration Polyethylene Glycol 17 gm 04/06/17 22:00 04/06/17 21:14 Miralax (For Daily Use) - PO 17 gm BID FERNANDA Administration Last Vital Signs Temp Pulse Resp BP Pulse Ox 99.2 F 107 H 18 128/70 96 04/07/17 09:00 04/07/17 09:00 04/07/17 09:00 04/07/17 09:00 04/06/17 21:00 General NAD CV S1 S2 + Lungs CTA B/L no wheezing/rales/rhonchi Abdomen soft NT/ND obese groin-B/L groin incisions with pankaj c/d/i no oozing, no fluctuance. CBCD WBC 9.6 K/mm3 (4.0-10.0) 04/07/17 06:20 RBC 3.97 M/mm3 (4.00-5.60) L 04/07/17 06:20 Hgb 11.5 GM/dL (11.7-16.9) L 04/07/17 06:20 Hct 34.5 % (35.4-49) L 04/07/17 06:20 MCV 87.0 fl (80-96) 04/07/17 06:20 MCHC 33.2 g/dl (32.0-35.9) 04/07/17 06:20 RDW 16.0 % (11.9-15.9) H 04/07/17 06:20 Plt Count 207 K/MM3 (134-434) 04/07/17 06:20 MPV 8.3 fl (7.5-11.1) 04/07/17 06:20 CMP Sodium 139 mmol/L (136-145) 04/07/17 06:20 Potassium 4.0 mmol/L (3.5-5.1) 04/07/17 06:20 Chloride 105 mmol/L (98-107) 04/07/17 06:20 Carbon Dioxide 26 mmol/L (21-32) 04/07/17 06:20 Anion Gap 8 (8-16) 04/07/17 06:20 BUN 22 mg/dL (7-18) H D 04/07/17 06:20 Creatinine 0.9 mg/dL (0.7-1.3) 04/07/17 06:20 Creat Clearance w eGFR > 60 (>60) 04/07/17 06:20 Calcium 8.4 mg/dL (8.5-10.1) L 04/07/17 06:20 Total Bilirubin 0.8 mg/dL (0.2-1.0) D 04/07/17 06:20 AST 14 U/L (15-37) L D 04/07/17 06:20 ALT 22 U/L (12-78) D 04/07/17 06:20 Alkaline Phosphatase 42 U/L (45-117) L D 04/07/17 06:20 Total Protein 5.9 g/dl (6.4-8.2) L 04/07/17 06:20 Albumin 2.7 g/dl (3.4-5.0) L D 04/07/17 06:20 Microbiology 04/05/17 09:45 Blood Culture - Preliminary Blood - Peripheral Venous NO GROWTH OBTAINED AFTER 24 HOURS, INCUBATION TO CONTINUE FOR 4 DAYS. 04/05/17 09:47 Blood Culture - Preliminary Blood - Peripheral Venous NO GROWTH OBTAINED AFTER 24 HOURS, INCUBATION TO CONTINUE FOR 4 DAYS. 04/05/17 12:18 Urine Culture - Final Urine - Urine Clean Catch NO GROWTH OBTAINED A?p 71yo M with PMH HTN, BPH, dyslipidemia, CVA with residual R sided weakness came to hospital for AAA repair and medicine consulted for fever and leukcytosis 1. SIRS- most likely post-op fever. was placed on prophylactic Cefazolin on 04/05. continued to have fevers and abx switched to ceftriaxone and flagyl 04/06. no afebrile 24H and leukocytosis resolved. will place back on cefazolin. could likely be on short course of abx as no source identified. CXR clear, Cx negative , incison clean and dry. 2. Constipation- resolved. large BM this AM. encouraged to continue stool softeners to ensure daily BM. cotn stool softeners 3. AAA s/p EVAR repair- surgical incision appear clean and intact. cont management per vasc surgery 4. HTN - controlled. cont home meds 5. BPH 6. DVT ppx- hep sq Visit type - Emergency Visit Emergency Visit: Yes ED Registration Date: 04/03/17 Care time: The patient presented to the Emergency Department on the above date and was hospitalized for further evaluation of their emergent condition. - New Patient This patient is new to me today: Yes Date on this admission: 04/07/17 - Critical Care Critical Care patient: No - Discharge Referral Referred to [facility] Med P.C.: No
[2017-04-07] MEDS: HYDROCHLOROTHIAZIDE 12.5 MG CAPSULE (FP) PO SCH (09:31)
[2017-04-07] MEDS: METOPROLOL SUCCINATE 25 MG TAB.SR.24H (FP) PO SCH ×2 (09:31→21:43)
[2017-04-07] MEDS: LISINOPRIL 20 MG TABLET (FP) PO SCH (09:31)
[2017-04-07] MEDS: ASPIRIN 81 MG CHEWABLE TABLETS PO SCH (09:32)
[2017-04-07] MEDS: CHOLECALCIFEROL (VITAMIN D3) 1,000 UNIT TABLET (FP) PO SCH (09:37)
[2017-04-07] MEDS: amLODIPine BESYLATE 10 MG TABLET (FP) PO SCH (09:37)
[2017-04-07] MEDS ORDERED: POLYETHYLENE GLYCOL 3350 119 GM BTL PO PRN (09:42)
[2017-04-07] MEDS ORDERED: CEFAZOLIN 1 GM/D5W 1 GM/50 ML BAG IVPB SCH (10:00)
[2017-04-07] MEDS: BACITRACIN 15 GM TUBE TOPICAL OINTMENT TP SCH (10:24)
[2017-04-07] MEDS: CEFAZOLIN 1 GM PUSH 1 GM/10 ML DISP.SYRIN IVPUSH SCH ×2 (11:12→17:46)
[2017-04-07] MEDS: ATORVASTATIN CA 20 MG TABLET (FP) PO SCH (21:43)
[2017-04-07] MEDS: DOCUSATE SODIUM 100 MG CAPSULE (FP) PO SCH (21:43)
[2017-04-08] MEDS ORDERED: PT OWN MED DRAWER 7, Y5N ONE ×2 (02:12→08:59)
[2017-04-08] MEDS: CEFAZOLIN 1 GM PUSH 1 GM/10 ML DISP.SYRIN IVPUSH SCH ×2 (02:21→09:01)
[2017-04-08] MEDS: HEPARIN NA (PORCINE) 5,000 UNITS/ML 1ML VIAL SQ SCH ×2 (05:14→14:33)
[2017-04-08] MEDS: hydrALAZINE HCL 25 MG TABLET (FP) PO SCH ×2 (05:14→14:32)
[2017-04-08] MEDS: ALBUTEROL SO4 2.5/IPRATROPIUM 0.5 INH SOL 3 ML VIAL.NEB. NEB SCH ×3 (06:30→14:16)
[2017-04-08 07:27] LABS: BASOPHIL 0.6 % (0-2.0); EOSINOPHIL 2.5 % (0-4.5); MCH 28.9 pg (25.7-33.7); MCHC 33.1 g/dl (32.0-35.9); MEAN CELL VOLUME 87.4 fl (80-96); MEAN PLT VOLUME 8.3 fl (7.5-11.1); NEUTROPHILS 62.7 % (42.8-82.8); PLATELET COUNT 243 K/MM3 (134-434); WHITE BLOOD COUNT 8.8 K/mm3 (4.0-10.0)
[2017-04-08] MEDS: HYDROCHLOROTHIAZIDE 12.5 MG CAPSULE (FP) PO SCH (09:01)
[2017-04-08] MEDS: METOPROLOL SUCCINATE 25 MG TAB.SR.24H (FP) PO SCH (09:01)
[2017-04-08] MEDS: amLODIPine BESYLATE 10 MG TABLET (FP) PO SCH (09:01)
[2017-04-08] MEDS: LISINOPRIL 20 MG TABLET (FP) PO SCH (09:01)
[2017-04-08] MEDS: BACITRACIN 15 GM TUBE TOPICAL OINTMENT TP SCH (09:01)
[2017-04-08] MEDS: CHOLECALCIFEROL (VITAMIN D3) 1,000 UNIT TABLET (FP) PO SCH (09:01)
[2017-04-08] MEDS: ASPIRIN 81 MG CHEWABLE TABLETS PO SCH (09:01)
--- NOTE | 2017-04-08 10:33 | PN ---
Progress Note (short form) - Note Progress Note: Vascular Surgery Patient seen and examined at bedside Feels well denies any complaints Vital Signs Vital Signs Period Temp Pulse Resp BP Sys/Gavin Pulse Ox Last 24 Hr 98.2 F-99.7 F 92-95 18-18 122-130/61-74 96 PE: AAOx3 NAD soft not nd groin incisions staple lines clean dry intact without drainage or discharge. [place] in place LE: no calf tenderness or swelling note b/l, feet warm with +2 dp pulses b/l. A/P: 71M with multiple medical problems presents with AAA s/p EVAAR POD#5 HTN HLD AAA s/p EVAAR POD #5 Fever leukocytosis continue sodium controlled diet negative leukocytosis and fever work up continue diet DVT PPx doing well surgically denies BM Can be discharged from surgical standpoint follow up with dr mata for pankaj removal this Saturday in clinic stop bacitracin to wound Discussed with Dr. Mata
[2017-04-08 11:47] VITALS: BP 133/97; PULSE 101; TEMP 100
--- NOTE | 2017-04-08 12:55 | DS ---
Physical Exam: SUBJECTIVE: Patient seen and examined OBJECTIVE: Vital Signs Period Temp Pulse Resp BP Sys/Gavin Pulse Ox Last 24 Hr 98.2 F-100 F 92-101 18-18 122-133/61-97 96 PHYSICAL EXAM GENERAL: The patient is awake, alert, and fully oriented, in no acute distress. HEAD: Normal with no signs of trauma. EYES: PERRL, extraocular movements intact, sclera anicteric, conjunctiva clear. ENT: Ears normal, nares patent, oropharynx clear without exudates, moist mucous membranes. NECK: Trachea midline, full range of motion, supple. LUNGS: Breath sounds equal, clear to auscultation bilaterally, no wheezes, no crackles, no accessory muscle use. HEART: Regular rate and rhythm, S1, S2 without murmur, rub or gallop. ABDOMEN: Soft, nontender, nondistended, normoactive bowel sounds, no guarding, no rebound, no hepatosplenomegaly, no masses. EXTREMITIES: 2+ pulses, warm, well-perfused, no edema. NEUROLOGICAL: Cranial nerves II through XII grossly intact. Normal speech, gait not observed. PSYCH: Normal mood, normal affect. SKIN: Warm, dry, normal turgor, no rashes or lesions noted. LABS Laboratory Results - last 24 hr 04/08/17 06:30 WBC 8.8 RBC 3.99 L Hgb 11.6 L Hct 34.9 L MCV 87.4 MCH 28.9 MCHC 33.1 RDW 16.0 H Plt Count 243 MPV 8.3 Neutrophils % 62.7 Lymphocytes % 19.1 Monocytes % 15.1 H Eosinophils % 2.5 D Basophils % 0.6 HOSPITAL COURSE: Date of Admission:04/03/17 Date of Discharge: 04/08/17 Discharge Summary Reason For Visit: AAA Current Active Problems AAA (abdominal aortic aneurysm) (Acute) AAA (abdominal aortic aneurysm) without rupture (Acute) Endoleak post (EVAR) endovascular aneurysm repair (Acute) Fever (Acute) HLD (hyperlipidemia) (Acute) HTN (hypertension) (Acute) Leukocytosis (Acute) Sepsis (Acute) Condition: Improved - Instructions Diet, Activity, Other Instructions: Dr. Hanna's Discharge Instructions Post Operative Instructions Physical activity Resume your normal everyday activity as tolerated no heavy lifting or exercise until seen by your surgeon. You may walk unlimited amounts of and climb stairs. You may resume driving the car when you feel safe and comfortable behind the wheel. Wound care Your pankaj will be removed at your post-op follow-up with Dr. Hanna. Please come to the office this Saturday04/12/2017. You may shower. Diet Low sodium diet Pain management You may take Tylenol or acetaminophen or Ibuprofen (for example, Motrin, Advil etc.) Any pain prescription medication ordered should be taken as prescribed for moderate to severe pain. Call Dr. Hanna for any of the following: Severe pain not relieved by medication Fever of 101 or higher Excessive bleeding or drainage on dressing Inability to urinate Call the office for a post operative appointment in 7 - 10 days. Referrals: Reilly Hanna MD [Staff Physician] - 04/12/17 (for follow up and pankaj removal ) Disposition: HOME - Home Medications Comprehensive Discharge Medication List: Ambulatory Orders Amlodipine Besylate [Norvasc -] 10 mg PO DAILY #30 tablet 01/13/14 Aspirin [ASA -] 81 mg PO DAILY #30 tab.chew 01/13/14 Atorvastatin Ca [Lipitor] 20 mg PO HS #30 tablet 01/13/14 Cholecalciferol (Vitamin D3) [Vitamin D3] 5,000 unit PO DAILY 04/02/17 Hydralazine HCl [Apresoline -] 25 mg PO TID 04/02/17 Ibuprofen/Diphenhydramine HCl [Advil Pm Liqui-Gels] 2 each PO BID 04/02/17 Lisinopril/Hydrochlorothiazide [Lisinopril-Hctz 20-12.5 mg Tab] 1 each PO DAILY 04/02/17 Metoprolol Succinate [Toprol XL -] 25 mg PO BID 04/02/17 - Discharge Referral [facility]erred to [facility] No
== END 2017-04-08 15:12 | disposition home or self-care (01) | DRG 268 ==
LOC: JASUSAT 07:47 → JSAMEDAYSX 13:17 → JICU 14:45 → J8W 04-04 18:40
PROVIDERS: ADMIT Surgery Vascular Surgery; ATTEND Surgery Vascular Surgery
PROC: 04V03D6 (ICD-10-PCS; principal; 2017-04-03 09:00)
DX: T82.330A Leakage of aortic (bifurcation) graft (replacement), initial encounter (principal); A41.9 Sepsis, unspecified organism; I69.351 Hemiplegia and hemiparesis following cerebral infarction affecting right dominant side; E78.5 Hyperlipidemia, unspecified; I10 Essential (primary) hypertension; D72.829 Elevated white blood cell count, unspecified; R50.82 Postprocedural fever; K59.00 Constipation, unspecified; N40.0 Benign prostatic hyperplasia without lower urinary tract symptoms; Z87.891 Personal history of nicotine dependence; Y83.9 Surgical procedure, unspecified as the cause of abnormal reaction of the patient, or of later complication, without mention of misadventure at the time of the procedure; E66.01 Morbid (severe) obesity due to excess calories; Z68.36 Body mass index [BMI] 36.0-36.9, adult
CPT/HCPCS: 36415; 71010-TC; 76000-TC; 80048; 80053; 81003; 83735; 84100; 85025; 85027; 86850; 86900; 86901; 86922; 87040; 87086; 94010; 94640; 94760; 97116-GP; 97161-GP; J1644